=== PATIENT | male | born 1960 | race Caucasian/White ===

== ENCOUNTER 2020-09-25 16:25 | Inpatient (IN) ==
--- NOTE | 2020-09-25 17:06 | XRay Report ---
SINGLE VIEW CHEST CLINICAL HISTORY: Atypical chest pain. FINDINGS: An AP, portable, upright chest radiograph is compared to study dated 04/28/2013. The heart i s top normal for projection. The mediastinal contour is within normal limits. There is bibasilar atel ectasis. The lungs and pleural spaces are otherwise clear. No pneumothorax is seen. The bony thorax i s grossly intact. IMPRESSION: No acute cardiopulmonary abnormality. ACT 112: Negative or not required by law. Electronically signed by: Joshua Carroll M.D. 09/25/2020 5:05 PM
[2020-09-25] MEDS ORDERED: ASPIRIN CHEW 324 MG PO STA (19:46)
[2020-09-25 20:36] LABS: Basophils # (auto) 0.02 K/uL (0-0.2); Basophils % (auto) 0.2 %; Eosinophils # (auto) 0.02 K/uL (0-0.5); Eosinophils % (auto) 0.2 %; Hematocrit (blood only) 40.5 % (42-52); Hemoglobin 13.8 g/dL (14.0-18.0); Immature Granulocytes # (auto) 0.03 K/uL (0.00-0.02); Immature Granulocytes % (auto) 0.2 %; Lymphocytes # (auto) 1.42 K/uL (1.2-3.4); Lymphocytes % (auto) 11.3 %; Mean Corpuscular Hemoglobin 29.4 pg (25-34); Mean Corpuscular Hgb Conc 34.1 g/dL (32-36); Mean Corpuscular Volume 86.2 fL (80-100); Mean Platelet Volume 9.7 fL (7.4-10.4); Monocytes # (auto) 0.64 K/uL (0.11-0.59); Monocytes % (auto) 5.1 %; Neutrophils # (auto) 10.48 K/uL (1.4-6.5); Platelet Count 237 K/uL (130-400); RDW Coefficient of Variation 13.6 % (11.5-14.5); RDW Standard Deviation 43.5 fL (36.4-46.3); White Blood Count 12.61 K/uL (4.8-10.8)
[2020-09-25 20:47] LABS: INR 1.1 (0.9-1.1); Partial Thromboplastin Time 26.9 Seconds (21.0-31.0); Prothrombin Time 10.7 Seconds (9.0-12.0)
[2020-09-25 20:55] LABS: Albumin Level 3.8 gm/dl (3.4-5.0); BUN Creatinine Ratio 27.4 (10-20); Calcium 9.6 mg/dl (8.5-10.1); Creatinine Clr Calc Pharmacy 99.3 ml/min; Est GFR (African American) 91.1 ml/min; Est GFR (Non-African American) 78.6 ml/min; Potassium 4.3 mmol/L (3.5-5.1)
[2020-09-25 20:59] LABS: D Dimer 16070 ug/L FEU (0-500)
[2020-09-25 21:05] LABS: Albumin Globulin Ratio 0.9 (0.9-2); Bilirubin,Total 0.6 mg/dl (0.2-1); Globulin 4.3 gm/dl (2.5-4.0); Total Protein 8.1 gm/dl (6.4-8.2); Troponin I 0.328 ng/ml (0-0.045)
[2020-09-25] MEDS ORDERED: OPTIRAY 320 125ml IV ONE (21:12)
[2020-09-25] MEDS ORDERED: Heparin IV Adult Wt-Based Standard WITH Bolus Protocol IV STA (22:03)
[2020-09-25] MEDS: HEPARIN SODIUM/DEXTROSE 25,000 UNITS/500 ML BAG IV SCH (22:16)
[2020-09-25] MEDS ORDERED: HEPARIN SOD (PORCINE) 1000 UNIT/ML IV ONE (22:18)
--- NOTE | 2020-09-25 22:30 | Emergency Department Note ---
History of Present Illness General Chief Complaint: Chest Pain Stated Complaint: CHEST/RIB PAIN Time Seen by Provider: 09/25/20 19:26 History of Present Illness Provider Complaint: chest pain Onset (ago): day(s) 1 Duration: intermittent and improved Onset: during exertion Pain Location: substernal Pain Radiation: none Severity: moderate Maximum Pain Intensity: 4 Current Pain Intensity: 4 Quality: + heaviness Relieved By: + rest Exacerbated By: + exertion Context: no recent illness, no recent surgery, no recent immobilization, no recent travel, no trauma/injury, no new medications or no history of DVT/PE Associated symptoms: + diaphoresis and + palpitations; no nausea, no vomiting, no dyspnea, no sense of impending doom, no syncope, no fever, no cough or no leg swelling Home Medications Medication Instructions Recorded Confirmed Type lisinopril 20 1 tab PO DAILY 09/25/20 09/25/20 History mg-hydrochlorothiazide 12.5 mg tablet Allergies Allergy/AdvReac Type Severity Reaction Status Date / Time No Known Allergies Allergy Unknown Verified 01/21/14 13:04 Past Med/Surg History Medical History HTN (hypertension) No pertinent family history Surgical History No pertinent past surgical history Social History Smoking Status: Never smoker Preferred Language: Bolivian Feels Safe at Home: Yes Review of Systems A total of 10 systems reviewed and were otherwise negative Physical Exam Vital Signs Vital Signs - 24 hr 09/25/20 16:40 09/25/20 19:27 09/25/20 20:16 Temperature 36.6 C Temperature Source Temporal Artery Scan Pulse Rate 89 104 H 92 H Pulse Rate from SpO2 Sensor 98 H 93 H Pulse Rhythm Regular Pulse Strength Normal Respiratory Rate 20 27 H 27 H Respiratory Effort / Characteristics Non-Labored Respiratory Depth Normal Respiratory Pattern Regular Blood Pressure 128/86 209/122 H 171/108 H Blood Pressure Mean 100 151 129 Blood Pressure Position Sitting Pulse Oximetry 95 94 94 Oxygen Delivery Method Room Air Sepsis Recent Fever Within 48 Hours No Sepsis New/Unexplained Change in Mental Status N/A Sepsis Action Taken by Nursing No Action Required 09/25/20 20:38 Temperature Temperature Source Pulse Rate 91 H Pulse Rate from SpO2 Sensor 92 H Pulse Rhythm Pulse Strength Respiratory Rate 27 H Respiratory Effort / Characteristics Respiratory Depth Respiratory Pattern Blood Pressure 161/102 H Blood Pressure Mean 121 Blood Pressure Position Pulse Oximetry 94 Oxygen Delivery Method Sepsis Recent Fever Within 48 Hours Sepsis New/Unexplained Change in Mental Status Sepsis Action Taken by Nursing Physical Exam GENERAL: He is oriented to person, place, and time. He appears well-developed and well-nourished. He does not appear distressed. HENT: Exam performed. - Head: Normocephalic and atraumatic. - Right Ear: External ear normal. No mastoid tenderness. - Left Ear: External ear normal. No mastoid tenderness. - Mouth/Throat: The oropharynx is clear and moist. No trismus in the jaw. No dental abscesses or uvula swelling. No oropharyngeal exudate or tonsillar abscesses. EYES: Conjunctivae and EOM are normal. Pupils are equal, round, and reactive to light. Right eye exhibits no discharge. Left eye exhibits no discharge. No scleral icterus. NECK: Normal range of motion. Neck supple. No JVD present. No spinous process tenderness present. No carotid bruit present. No rigidity. No tracheal deviation and normal range of motion present. No Brudzinski's sign and no Kernig's sign noted. CV: Tachycardic rate, regular rhythm, normal heart sounds and intact distal pulses. There is no peripheral edema. Palpable radial pulses bue. PULM/CHEST: Effort normal and breath sounds normal. No respiratory distress. No stridor. He has no wheezes. He has no rales. - Chest Wall: He exhibits no tenderness. ABD: The abdomen is soft. Morbidly obese bowel sounds are normal. He has no distension. No mass is present. There is no tenderness. There is no rebound, no guarding, no Alfonso's sign and no tenderness at McBurney's point. Rovsig negative. MUSC/SKEL: Normal range of motion. There is no peripheral edema, tenderness or deformity. LYMPH: No cervical adenopathy. NEURO: He is alert and oriented to person, place, and time. He has normal strength. No cranial nerve deficit or sensory deficit. Coordination and gait normal. GCS eye subscore is 4. GCS verbal subscore is 5. GCS motor subscore is 6. Cerebellar tests wnl. SKIN: Skin is warm and dry. He is not diaphoretic. PSYCH: He has a normal mood and affect. Behavior is normal. Judgment and thought content normal. Course Course 1925: The patient was evaluated in room A3. A complete history and physical exam was performed Cardiac monitoring: An order was placed for continuous cardiac monitoring. The monitor shows a rate of 101 with sinus tachycardia rhythm 2225: Vital signs stable. Pulse oximetry is within normal limits on room air. Patient is not tachycardic. Blood pressure stable. Labs show an elevated troponin of 0.328. D-dimer is elevated at 16,070. CTA of the chest was performed which showed bilateral PEs with right ventricular strain. Patient will be started on heparin. No need for thrombolytics at this time as the p atient is not hypoxic not hypotensive and his pain is controlled at rest. Case discussed with [facility] hospitalist Dr. Piper who will accept and admit to her service. Administered Medications Heparin Sodium/Dextrose (Heparin Sodium/Dextrose) 25,000 units in 500 mls @ 0.02 mls/hr IV .Q24H [facility]; Protocol Stop: 10/25/20 22:29 Last Admin: 09/25/20 22:16 Dose: 1,650 units/hr, 33 mls/hr Documented by: [id number] Cosigned by: [id number] Discontinued Medications Aspirin (Aspirin Chew 324 Mg) 324 mg PO NOW STA Stop: 09/25/20 19:47 Last Admin: 09/25/20 20:17 Dose: 324 mg Documented by: [id number] Heparin Sodium (Porcine) (Heparin Sod (Porcine) 1000 Unit/Ml) 1 units IV NOW ONE Stop: 09/25/20 22:19 Last Admin: 09/25/20 22:16 Dose: 7,000 units Documented by: [id number] Cosigned by: [id number] Heparin Sodium/Dextrose (Heparin Iv Adult Wt-Based Standard With Bolus Protocol) 1 ea IV NOW STA; Protocol Stop: 09/25/20 22:04 Last Admin: 09/25/20 22:16 Dose: 1 ea Documented by: [id number] Ioversol (Optiray 320 125ml) 119 ml IV ONCE ONE Stop: 09/25/20 21:13 Last Admin: 09/25/20 21:12 Dose: 1 ml Documented by: [id number] Medical Decision Making Laboratory Data Result diagrams: 09/25/20 20:01 09/25/20 20:01 Labs: Lab Results 09/25/20 09/25/20 09/25/20 Range/Units 20:01 20:01 20:01 WBC 12.61 H (4.8-10.8) K/uL RBC 4.70 (4.7-6.1) M/uL Hgb 13.8 L (14.0-18.0) g/dL Hct 40.5 L (42-52) % MCV 86.2 (80-100) fL MCH 29.4 (25-34) pg MCHC 34.1 (32-36) g/dL RDW Std Deviation 43.5 (36.4-46.3) fL RDW Coeff of Daniel 13.6 (11.5-14.5) % Plt Count 237 (130-400) K/uL MPV 9.7 (7.4-10.4) fL Immature Gran % (Auto) 0.2 % Neut % (Auto) 83.0 % Lymph % (Auto) 11.3 % [place] % (Auto) 5.1 % Eos % (Auto) 0.2 % Baso % (Auto) 0.2 % Neut # (Auto) 10.48 H (1.4-6.5) K/uL Lymph # (Auto) 1.42 (1.2-3.4) K/uL [place] # (Auto) 0.64 H (0.11-0.59) K/uL Eos # (Auto) 0.02 (0-0.5) K/uL Baso # (Auto) 0.02 (0-0.2) K/uL Immature Gran # (Auto) 0.03 H (0.00-0.02) K/uL PT 10.7 (9.0-12.0) Seconds INR 1.1 (0.9-1.1) APTT 26.9 (21.0-31.0) Seconds PTT Ratio 1.0 D-Dimer (0-500) ug/L FEU Sodium 139 (136-145) mmol/L Potassium 4.3 (3.5-5.1) mmol/L Chloride 108 H (98-107) mmol/L Carbon Dioxide 22 (21-32) mmol/L Anion Gap 9.0 (3-11) BUN 28 H (7-18) mg/dl Creatinine 1.03 (0.6-1.4) mg/dl Est Cr Clr Drug Dosing 99.3 ml/min Est GFR ( Amer) 91.1 ml/min Est GFR (Non-Af Amer) 78.6 ml/min BUN/Creatinine Ratio 27.4 H (10-20) Glucose 101 H (70-99) mg/dl Calcium 9.6 (8.5-10.1) mg/dl Total Bilirubin 0.6 (0.2-1) mg/dl AST 15 (15-37) U/L ALT 28 (12-78) U/L Alkaline Phosphatase 50 (45-117) U/L Troponin I 0.328 H* (0-0.045) ng/ml Total Protein 8.1 (6.4-8.2) gm/dl Albumin 3.8 (3.4-5.0) gm/dl Globulin 4.3 H (2.5-4.0) gm/dl Albumin/Globulin Ratio 0.9 (0.9-2) 09/25/20 Range/Units 20:01 WBC (4.8-10.8) K/uL RBC (4.7-6.1) M/uL Hgb (14.0-18.0) g/dL Hct (42-52) % MCV (80-100) fL MCH (25-34) pg MCHC (32-36) g/dL RDW Std Deviation (36.4-46.3) fL RDW Coeff of Daniel (11.5-14.5) % Plt Count (130-400) K/uL MPV (7.4-10.4) fL Immature Gran % (Auto) % Neut % (Auto) % Lymph % (Auto) % [place] % (Auto) % Eos % (Auto) % Baso % (Auto) % Neut # (Auto) (1.4-6.5) K/uL Lymph # (Auto) (1.2-3.4) K/uL [place] # (Auto) (0.11-0.59) K/uL Eos # (Auto) (0-0.5) K/uL Baso # (Auto) (0-0.2) K/uL Immature Gran # (Auto) (0.00-0.02) K/uL PT (9.0-12.0) Seconds INR (0.9-1.1) APTT (21.0-31.0) Seconds PTT Ratio D-Dimer 96322 H* (0-500) ug/L FEU Sodium (136-145) mmol/L Potassium (3.5-5.1) mmol/L Chloride (98-107) mmol/L Carbon Dioxide (21-32) mmol/L Anion Gap (3-11) BUN (7-18) mg/dl Creatinine (0.6-1.4) mg/dl Est Cr Clr Drug Dosing ml/min Est GFR ( Amer) ml/min Est GFR (Non-Af Amer) ml/min BUN/Creatinine Ratio (10-20) Glucose (70-99) mg/dl Calcium (8.5-10.1) mg/dl Total Bilirubin (0.2-1) mg/dl AST (15-37) U/L ALT (12-78) U/L Alkaline Phosphatase (45-117) U/L Troponin I (0-0.045) ng/ml Total Protein (6.4-8.2) gm/dl Albumin (3.4-5.0) gm/dl Globulin (2.5-4.0) gm/dl Albumin/Globulin Ratio (0.9-2) Imaging Data Chest x-ray: Radiologist's impression: Chest X-Ray 09/25/20 16:42 SINGLE VIEW CHEST CLINICAL HISTORY: Atypical chest pain. FINDINGS: An AP, portable, upright chest radiograph is compared to study dated 04/28/2013. The heart is top normal for projection. The mediastinal contour is within normal limits. There is bibasilar atelectasis. The lungs and pleural spaces are otherwise clear. No pneumothorax is seen. The bony thorax is grossly intact. IMPRESSION: No acute cardiopulmonary abnormality. ACT 112: Negative or not required by law. Electronically signed by: Joshua Carroll M.D. 09/25/2020 5:[address] scan - chest: Radiologist's impression: PreliminaryFindingsOnly See Final Report For Complete Findings CTACHEST: The pulmonaryarterial tree iswell-opacified with contrast. There are filling defects in the distal left and right main pulmonaryarteries extending into all lobar branches consistent with pulmonaryemboli. The RV/LVratio is elevated measuring 1.5 suggesting right heart strain. The thoracic aorta is nondilated. There is no aneurysmor dissection. The heart is not enlarged. No pericardial effusion is seen. No mediastinal or axillarylymph adenopathyor mass is seen. The lungs are well inflated and clear. No infiltrate or consolidation. No pneumothorax or pleural effusion. Moderate multilevel osteophytosis throughout the thoracic spine. Previous gastric sleeve procedure. Radiologist: Phil Piper MD Study ready at 21:38 and initial results transmitted at 22:01 ECG Data Indication: chest pain Rate (beats per minute): 100 Rhythm: normal sinus Findings: no ST depression, no ST elevation or no prolonged QT MDM Narrative Vital signs stable. Pulse oximetry is within normal limits on room air. Patient is not tachycardic. Blood pressure stable. Labs show an elevated troponin of 0.328. D-dimer is elevated at 16,070. CTA of the chest was performed which showed bilateral PEs with right ventricular strain. Patient will be started on heparin. No need for thrombolytics at this time as the patient is not hypoxic not hypotensive and his pain is controlled at rest. Case discussed with [facility] hospitalist Dr. Piper who will accept and admit to her service. Impression & Plan Pulmonary embolism with acute cor pulmonale Critical Care Time Critical Care Time: Yes Total Critical Care Time: 60 I have personally spent greater than 60 minutes of critical care time in the direct management of this patient. This includes bedside care, interpretation of diagnostic studies, and testing, discussion with consultants, patient, and family members, and other required patient management activities. This 60 minutes is in excess of all separately billable procedures. Discharge Plan Visit Data Chief Complaint: Chest Pain Stated Complaint: CHEST/RIB PAIN Discharge Problem: Pulmonary embolism with acute cor pulmonale Patient Disposition: Admitted As Inpatient Forms Stand Alone Forms: [facility] Prescriptions Prescriptions: No Action lisinopril-hydrochlorothiazide 20-12.5 mg tablet 1 tab PO DAILY RF: 0 Referrals Referrals: Alanna Moreland MD [Primary Care Provider] -
--- NOTE | 2020-09-25 22:52 | History & Physical Report ---
Date of Service September 25, 2020 Assessment & Plan (1) Pulmonary emboli: Plan: Pulmonary embolism 60-year-old male with history of hypertension presenting with acute pulmonary emboli. Patient presently hemodynamically stable, adequate oxygenation on room air with no evidence of respiratory distress. Pasi score of 70, class II, low risk. Shock index = 0.6, within normal range. Etiology of VTE unclear. Patient with no personal or family history of blood clots. He denies trauma, immobility. He is up-to-date on age-appropriate cancer screenings. -Admit to PCU -Check BNP and Lactate -Check bilateral LE doppler and 2D echo -Continue heparin gtt -Trend troponin -Lytics should patient decompensate (2) HTN (hypertension): Plan: Blood pressure markedly elevated upon arrival, now normal at 136/74 -Will hold home antihypertensives for now Plan: F/E/N - Heplock, monitor electrolytes and replete as needed, Heart healthy diet as tolerated Ppx - Heparin gtt Code -Full per discussion with patient Dispo -Admit to PCU for management of acute PE History of Present Illness Chief Complaint: SOB Primary Care Provider: Alanna Moreland MD Damir Dacosta is a 60yo male presenting with dyspnea. Patient states that he had some leg cramping last week. Over the weekend he was working in the garden and cleaning his car and washing his car and noticed that he felt more short of breath than usual. Today he had meetings all day. After work he was walking to his car and became cold, clammy and diaphoretic. He had some dizziness and chest pain.He sat down for approximately 1 hour then had a coworker drive him to the emergency room. Patient denies recent travel or immobility, no recent surgery or trauma. No personal or family history of VTE. He has no history of lung disease or heart disease In the ER, patient found to have extensive pulmonary emboli on CTA with concern for right heart strain. He remained hemodynamically stable with no respiratory distress. ER course: Heparin bolus and drip Allergies Allergy/AdvReac Type Severity Reaction Status Date / Time No Known Allergies Allergy Unknown Verified 01/21/14 13:04 Home Medications Medication Instructions Recorded Confirmed Type lisinopril 20 1 tab PO DAILY 09/25/20 09/25/20 History mg-hydrochlorothiazide 12.5 mg tablet Past Med/Surg History Medical History (Updated 09/26/20 @ 00:43 by Amelia Piper DO) HTN (hypertension) Surgical History (Updated 09/26/20 @ 00:37 by Amelia Piper DO) H/O gastric bypass Gastric sleeve History of hernia repair History of hip replacement History of tonsillectomy History of wisdom tooth extraction Family History (Updated 09/26/20 @ 00:38 by Amelia Piper DO) Other Dementia Social History Smoking Status: Never smoker Preferred Language: Cambodian Feels Safe at Home: Yes Immunizations: History of Covid vaccination Review of Systems Review of Systems: General: Patient denies fevers, chills, malaise, weight loss or weight gain Skin: Patient denies bruising, bleeding or rash HEENT: Patient denies headache, visual changes, sore throat, difficulty swallowing, stiff neck Cardio: Patient + chest pain, +COLIN, denies palpitations, syncope Pulmonary: Patient denies cough, wheeze GI: Patient denies abdominal pain, nausea, vomiting, diarrhea, constipation : Patient denies dysuria, frequency, urgency or hematuria Musculoskeletal: Patient denies swelling or pain of the joints, edema Neuro: Patient denies numbness, tingling, weakness or falls Psych: Patient denies depression, anxiety Physical Exam Physical Exam: General: patient resting comfortably, NAD, non-toxic in appearance, AA&O x 4 Skin: warm, dry, intact, no rashes or lesions HEENT: NC/AT, PERRL, EOMI, anicteric sclera, conjunctiva without injection, external ear normal to inspection and nontender, nares patent, moist mucus membranes, dentition intact, no oropharyngeal lesions, neck supple, trachea midline, no LAD, no thyromegaly, no JVD Heart: +S1/S2, regular, no m/r/g Lungs: equal air entry bilaterally, no rales/rhonchi/wheezes Abd: +BS, soft, NT/ND, no masses/organomegaly/ascites Ext: warm, 2+ pulses in UE/LE bilaterally, no clubbing/cyanosis or edema Neuro: nonfocal, patient AA&O x 4, speech intact, no facial droop, moving all extremities on command with equal strength 5/5 Results & Data Results & Data ([facility]) Vital Signs (Past 12 Hours) Vital Signs Temp Pulse Pulse Resp BP BP Pulse Ox 09/25/20 22:26 90 18 136/77 96 09/25/20 20:38 91 H 27 H 161/102 H 94 09/25/20 20:16 92 H 27 H 171/108 H 94 09/25/20 19:27 104 H 27 H 209/122 H 94 09/25/20 16:40 36.6 C 89 20 128/86 95 Laboratory Results Laboratory Results WBC 12.61 K/uL (4.8-10.8) H 09/25/20 20:01 RBC 4.70 M/uL (4.7-6.1) 09/25/20 20:01 Hgb 13.8 g/dL (14.0-18.0) L 09/25/20 20:01 Hct 40.5 % (42-52) L 09/25/20 20:01 MCV 86.2 fL (80-100) 09/25/20 20: MCH 29.4 pg (25-34) 09/25/20 20:01 MCHC 34.1 g/dL (32-36) 09/25/20 20:01 RDW Std Deviation 43.5 fL (36.4-46.3) 09/25/20 20:01 RDW Coeff of Daniel 13.6 % (11.5-14.5) 09/25/20 20:01 Plt Count 237 K/uL (130-400) 09/25/20 20:01 MPV 9.7 fL (7.4-10.4) 09/25/20 20:01 Immature Gran % (Auto) 0.2 % 09/25/20 20:01 Neut % (Auto) 83.0 % 09/25/20 20:01 Lymph % (Auto) 11.3 % 09/25/20 20:01 [place] % (Auto) 5.1 % 09/25/20 20:01 Eos % (Auto) 0.2 % 09/25/20 20:01 Baso % (Auto) 0.2 % 09/25/20 20:01 Neut # (Auto) 10.48 K/uL (1.4-6.5) H 09/25/20 20:01 Lymph # (Auto) 1.42 K/uL (1.2-3.4) 09/25/20 20:01 [place] # (Auto) 0.64 K/uL (0.11-0.59) H 09/25/20 20:01 Eos # (Auto) 0.02 K/uL (0-0.5) 09/25/20 20:01 Baso # (Auto) 0.02 K/uL (0-0.2) 09/25/20 20:01 Immature Gran # (Auto) 0.03 K/uL (0.00-0.02) H 09/25/20 20:01 PT 10.7 Seconds (9.0-12.0) 09/25/20 20:01 INR 1.1 (0.9-1.1) 09/25/20 20:01 APTT > 139.0 Seconds (21.0-31.0) H* 09/25/20 22:51 PTT Ratio > 5.3 09/25/20 22:51 D-Dimer 18322 ug/L FEU (0-500) H* 09/25/20 20:01 Sodium 139 mmol/L (136-145) 09/25/20 20:01 Potassium 4.3 mmol/L (3.5-5.1) 09/25/20 20:01 Chloride 108 mmol/L (98-107) H 09/25/20 20:01 Carbon Dioxide 22 mmol/L (21-32) 09/25/20 20:01 Anion Gap 9.0 (3-11) 09/25/20 20:01 BUN 28 mg/dl (7-18) H 09/25/20 20:01 Creatinine 1.03 mg/dl (0.6-1.4) 09/25/20 20:01 Est Cr Clr Drug Dosing 99.3 ml/min 09/25/20 20:01 Est GFR ( Amer) 91.1 ml/min 09/25/20 20:01 Est GFR (Non-Af Amer) 78.6 ml/min 09/25/20 20:01 BUN/Creatinine Ratio 27.4 (10-20) H 09/25/20 20:01 Glucose 101 mg/dl (70-99) H 09/25/20 20:01 Calcium 9.6 mg/dl (8.5-10.1) 09/25/20 20:01 Total Bilirubin 0.6 mg/dl (0.2-1) 09/25/20 20:01 AST 15 U/L (15-37) 09/25/20 20:01 ALT 28 U/L (12-78) 09/25/20 20:01 Alkaline Phosphatase 50 U/L (45-117) 09/25/20 20:01 Troponin I 0.328 ng/ml (0-0.045) H* 09/25/20 20:01 Total Protein 8.1 gm/dl (6.4-8.2) 09/25/20 20:01 Albumin 3.8 gm/dl (3.4-5.0) 09/25/20 20:01 Globulin 4.3 gm/dl (2.5-4.0) H 09/25/20 20:01 Albumin/Globulin Ratio 0.9 (0.9-2) 09/25/20 20:01 COVID-19 Eval Order Covid19 at [facility] 09/25/20 22:26 SARS-CoV-2 (PCR) NEGATIVE (Negative) 09/25/20 22:26 Impressions Chest X-Ray 09/25/20 16:42 SINGLE VIEW CHEST CLINICAL HISTORY: Atypical chest pain. FINDINGS: An AP, portable, upright chest radiograph is compared to study dated 04/28/2013. The heart is top normal for projection. The mediastinal contour is within normal limits. There is bibasilar atelectasis. The lungs and pleural spaces are otherwise clear. No pneumothorax is seen. The bony thorax is grossly intact. IMPRESSION: No acute cardiopulmonary abnormality. ACT 112: Negative or not required by law. Electronically signed by: Joshua Carroll M.D. 09/25/2020 5:05 PM Diagnostic Findings CTA chest: Per stat readthe pulmonary arterial tree is well opacified with contrast. There are filling defects in the distal left and right main pulmonary arteries extending into all lobar branches consistent with pulmonary emboli. The RV/LV ratio was elevated measuring 1.5 suggesting right heart strain. The thoracic aorta is nondilated. There is no aneurysm or dissection. The heart is not enlarged. No pericardial effusion is seen. No mediastinal or axillary lymphadenopathy or mass is seen. The lungs are well-inflated and clear. No infiltrate or consolidation. No pneumothorax or pleural effusion. Moderate multilevel osteophytosis throughout the thoracic spine. Previous gastric sleeve procedure. ECG Additional Comments: EKG with sinus tachycardia 101 bpm, low voltage, ND = 196, QRS = 86, QTc = 438. Evidence of septal infarct, age indeterminant. Nonspecific ST changes in inferior lateral leads. Code Status & VTE Plan VTE Prophylaxis Plan VTE Prophylaxis will be ordered: Yes PG Care Time/CCT Total # of Minutes Spent Total Time Spent with Patient: Total time spent is greater than 50% in coordination of care (as documented) at patient's floor/unit and/or counseling patient: Coding Level of Care Code 73802 Initial Inpt Care Lvl 2 Diagnoses Pulmonary emboli I26.99 HTN (hypertension) I10
[2020-09-25 23:17] LABS: Partial Thromboplastin Ratio > 5.3
[2020-09-25 23:34] LABS: Partial Thromboplastin Time > 139.0 Seconds (21.0-31.0)
[2020-09-26] MEDS ORDERED: ONDANSETRON INJ 2 MG/ML 2 ML VIAL IV PRN (00:41)
[2020-09-26] MEDS ORDERED: ACETAMINOPHEN 325 MG TAB PO PRN (00:41)
[2020-09-26 01:22] LABS: Phosphorus 4.3 mg/dl (2.5-4.9)
[2020-09-26 04:40] LABS: Basophils # (auto) 0.01 K/uL (0-0.2); Basophils % (auto) 0.1 %; Eosinophils # (auto) 0.15 K/uL (0-0.5); Eosinophils % (auto) 1.3 %; Hematocrit (blood only) 39.3 % (42-52); Hemoglobin 13.5 g/dL (14.0-18.0); Immature Granulocytes # (auto) 0.03 K/uL (0.00-0.02); Immature Granulocytes % (auto) 0.3 %; Lymphocytes % (auto) 26.8 %; Mean Corpuscular Hemoglobin 29.3 pg (25-34); Mean Corpuscular Hgb Conc 34.4 g/dL (32-36); Mean Corpuscular Volume 85.4 fL (80-100); Mean Platelet Volume 9.5 fL (7.4-10.4); Monocytes # (auto) 0.64 K/uL (0.11-0.59); Monocytes % (auto) 5.7 %; Neutrophils # (auto) 7.37 K/uL (1.4-6.5); Neutrophils % (auto) 65.8 %; Platelet Count 238 K/uL (130-400); RDW Coefficient of Variation 13.7 % (11.5-14.5); RDW Standard Deviation 42.5 fL (36.4-46.3)
[2020-09-26 04:57] LABS: BUN Creatinine Ratio 29.1 (10-20); Creatinine Clr Calc Pharmacy 111.1 ml/min; Est GFR (African American) 104.4 ml/min; Est GFR (Non-African American) 90.1 ml/min; Potassium 3.8 mmol/L (3.5-5.1)
[2020-09-26 05:00] LABS: Partial Thromboplastin Ratio 2.8
[2020-09-26 05:02] LABS: Troponin I 0.222 ng/ml (0-0.045)
[2020-09-26 05:10] LABS: Partial Thromboplastin Time 72.5 Seconds (21.0-31.0)
--- NOTE | 2020-09-26 07:40 | CT Scan Report ---
CT angio chest PE protocol CT DOSE: 1027.73 mGy.cm HISTORY: 60 years-old Male with ro PE. Acutely elevated d-dimer level with chest pain TECHNIQUE: Multiple CTA images of the chest were obtained after the intravenous administration of 119 ml Optiray. Coronal and sagittal MIPS were obtained from the axial data set and were submitted for review. All measurements were obtained according to NASCET criteria. A dose lowering technique was u tilized adhering to the principles of ALARA. COMPARISON: Chest radiograph of same day FINDINGS: CTA: Mild cardiac megaly with trace pericardial effusion. Mild coronary artery calcifications. No thoracic aortic aneurysm or dissection. Pulmonary emboli are present within the distal aspects of the main ri ght and left pulmonary arteries extending into the lobar, segmental and subsegmental branches of all lobes bilaterally. There is straightening of the intraventricular septum. CT CHEST: Unremarkable thyroid. No adenopathy. No pneumothorax, pleural effusion, airspace consolidation or ove rt pulmonary edema. No pulmonary infarction, suspicious pulmonary nodule or mass. The central airways are patent. Prior gastric bypass. No acute process of the imaged upper abdomen. Unremarkable soft tissues. No acu te fracture. IMPRESSION: 1. Extensive acute pulmonary emboli with evidence of right heart strain. 2. Cardiomegaly without pulmonary edema, pleural effusion or pulmonary infarct. ACT 112: Negative or not required by law. The above report was generated using voice recognition software. It may contain grammatical, syntax o r spelling errors. Electronically signed by: Juanito Rader M.D. 09/26/2020 7:39 AM
--- NOTE | 2020-09-26 09:39 | Ultrasound Report ---
BILATERAL LOWER EXTREMITY VENOUS DOPPLER HISTORY: Pulmonary embolus. Assess for DVTs. COMPARISON STUDY: None. FINDINGS: There is normal compressibility, flow, and augmentation within the bilateral lower extremit y deep venous systems. IMPRESSION: No DVT within the right or left lower extremity. ACT 112: Negative or not required by law. Electronically signed by: Micha Nielsen M.D. 09/26/2020 9:38 AM
[2020-09-26] MEDS ORDERED: PERFLUTREN LIPID MICROSPHERE (DEFINITY) IV ONE (11:18)
[2020-09-26 12:08] LABS: Partial Thromboplastin Time 51.6 Seconds (21.0-31.0)
[2020-09-26] MEDS: HEPARIN SODIUM/DEXTROSE 25,000 UNITS/500 ML BAG IV SCH (12:23)
--- NOTE | 2020-09-26 15:01 | XCELERA ---
[id number]
--- NOTE | 2020-09-26 15:04 | Electrocardiogram Report ---
Test Reason : Blood Pressure : / mmHG Vent. Rate : 101 BPM Atrial Rate : 101 BPM P-R Int : 196 ms QRS Dur : 086 ms QT Int : 338 ms P-R-T Axes : 000 089 186 degrees QTc Int : 438 ms Sinus tachycardia Low voltage QRS Abnormal ECG When compared with ECG of 27-DEC-2010 13:58, T wave inversion now evident in Lateral leads QT has lengthened Confirmed by Joaquín Chen ([id number]) on 09/26/2020 3:03:57 PM Referred By: REFERRED SELF Confirmed By:Axel Chen
[2020-09-26] MEDS ORDERED: WARFARIN SOD 10 MG TAB PO ONE (17:00)
--- NOTE | 2020-09-26 21:44 | Hospitalist Progress Note ---
Date of Service September 26, 2020 Assessment & Plan (1) Pulmonary emboli: Plan: Extensive b/l PEs. Fortunately no hypoxia. This would suggest he was throwing PEs for some time. Dopplers of legs neg for residual DVT. Echo with mild right-heart enlargement but normal RV systolic function. Cause of VTE?? We had lengthy discussion about this. Will need updated cancer screenings post-d/c. Will send some hypercoagulability w/u labs - prothrombin gene mutation, factor 5 leiden mutation, homocysteine, etc. I don't believe he is a good DOAC candidate because of morbid obesity and BMI of nearly 140kg. Thus, start coumadin - load with 10mg today. Cont heparin. May be candidate for lovenox 150mg BID to help with bridging. But would wait at least 2 days to see what INR trend does before transitioning to lovenox. (2) HTN (hypertension): Plan: BPs controlled with BERENICE-HCT on hold. Cont to hold. (3) Morbid obesity with BMI of 50.0-59.9, adult: Plan: BMI 50 Plan: left message for pt's on her voicemail this evening length of visit about 35 min due to considerable discussion at bedside Admission and Anticipated Discharge Date Admission Date: September 25, 2020 Subjective patient resting comfortably in bed during the visit. no dyspnea at rest. he states he has improved COLIN today. tele normal overnight ; some sinus tach with activity. pt denies personal or family history of VTE. in the months leading up to this event he has had normal health. he admits to not being as active because of COVID, but yefr-ydl-goca he is going to work on the [facility] campus as usual. no recent surgery. no recent travel. fully vaccinated against COVID - received vaccine earlier in spring. no COVID illness at any time. he is UTD with colonoscopy - had a normal c-scope at age 53. no h/o prostate issues. did lose about 10-12 pounds over the last 6 months but he changed his diet to help promote weight loss. Review of Systems Constitutional: no fever, no chills, no sweats, no fatigue, no weakness and no anorexia Respiratory: + dyspnea on exertion; no cough Cardiovascular: no chest pain and no edema Gastrointestinal: no abdominal pain, no nausea, no vomiting and no change in bowel habits Genitourinary: no difficulty urinating Physical Exam Physical Exam: gen - NAD, morbidly obese neck - no cervical lymphadenopathy mouth - MMM heart - RRR, s1 s2, no murmur lungs - CTA b/l abd - soft, NT, ND, BS+, no HSM ext - no edema skin - no rash Results & Data Results & Data ([facility]) Vital Signs (Past 12 Hours) Vital Signs Temp Pulse Resp BP BP Pulse Ox 09/26/20 19:47 36.2 C L 90 18 111/77 94 09/26/20 11:48 36.8 C 79 132/75 93 Laboratory Results Laboratory Results - last 24 hr 09/25/20 09/25/20 09/25/20 22:26 22:26 22:51 WBC RBC Hgb Hct MCV MCH MCHC RDW Std Deviation RDW Coeff of Daniel Plt Count MPV Immature Gran % (Auto) Neut % (Auto) Lymph % (Auto) Durham % (Auto) Eos % (Auto) Baso % (Auto) Neut # (Auto) Lymph # (Auto) Durham # (Auto) Eos # (Auto) Baso # (Auto) Immature Gran # (Auto) APTT > 139.0 H* PTT Ratio > 5.3 Sodium Potassium Chloride Carbon Dioxide Anion Gap BUN Creatinine Est Cr Clr Drug Dosing Est GFR ( Amer) Est GFR (Non-Af Amer) BUN/Creatinine Ratio Glucose Calcium Phosphorus Magnesium Troponin I NT-Pro-B Natriuret Pep COVID-19 Eval Order Covid19 at [facility] SARS-CoV-2 (PCR) NEGATIVE 09/25/20 09/26/20 09/26/20 22:51 04:12 04:12 WBC 11.20 H RBC 4.60 L Hgb 13.5 L Hct 39.3 L MCV 85.4 MCH 29.3 MCHC 34.4 RDW Std Deviation 42.5 RDW Coeff of Daniel 13.7 Plt Count 238 MPV 9.5 Immature Gran % (Auto) 0.3 Neut % (Auto) 65.8 Lymph % (Auto) 26.8 Durham % (Auto) 5.7 Eos % (Auto) 1.3 Baso % (Auto) 0.1 Neut # (Auto) 7.37 H Lymph # (Auto) 3.00 Durham # (Auto) 0.64 H Eos # (Auto) 0.15 Baso # (Auto) 0.01 Immature Gran # (Auto) 0.03 H APTT PTT Ratio Sodium 136 Potassium 3.8 Chloride 110 H Carbon Dioxide 23 Anion Gap 3.0 BUN 27 H Creatinine 0.92 Est Cr Clr Drug Dosing 111.1 Est GFR ( Amer) 104.4 Est GFR (Non-Af Amer) 90.1 BUN/Creatinine Ratio 29.1 H Glucose 103 H Calcium 9.0 Phosphorus 4.3 Magnesium 2.0 Troponin I 0.222 H* NT-Pro-B Natriuret Pep 2161 H COVID-19 Eval Order SARS-CoV-2 (PCR) 09/26/20 09/26/20 09/26/20 04:12 11:07 12:40 WBC RBC Hgb Hct MCV MCH MCHC RDW Std Deviation RDW Coeff of Daniel Plt Count MPV Immature Gran % (Auto) Neut % (Auto) Lymph % (Auto) Durham % (Auto) Eos % (Auto) Baso % (Auto) Neut # (Auto) Lymph # (Auto) Durham # (Auto) Eos # (Auto) Baso # (Auto) Immature Gran # (Auto) APTT 72.5 H* 51.6 H* PTT Ratio 2.8 2.0 Sodium Potassium Chloride Carbon Dioxide Anion Gap BUN Creatinine Est Cr Clr Drug Dosing Est GFR ( Amer) Est GFR (Non-Af Amer) BUN/Creatinine Ratio Glucose Calcium Phosphorus Magnesium Troponin I 0.121 H* NT-Pro-B Natriuret Pep COVID-19 Eval Order SARS-CoV-2 (PCR) Diagnostic Findings Chest CTA 09/25/20 21:00 CT angio chest PE protocol CT DOSE: 1027.73 mGy.cm HISTORY: 60 years-old Male with ro PE. Acutely elevated d-dimer level with chest pain TECHNIQUE: Multiple CTA images of the chest were obtained after the intravenous administration of 119 ml Optiray. Coronal and sagittal MIPS were obtained from the axial data set and were submitted for review. All measurements were obtained according to NASCET criteria. A dose lowering technique was utilized adhering to the principles of ALARA. COMPARISON: Chest radiograph of same day FINDINGS: CTA: Mild cardiac megaly with trace pericardial effusion. Mild coronary artery calcifications. No thoracic aortic aneurysm or dissection. Pulmonary emboli are present within the distal aspects of the main right and left pulmonary arteries extending into the lobar, segmental and subsegmental branches of all lobes bilaterally. There is straightening of the intraventricular septum. CT CHEST: Unremarkable thyroid. No adenopathy. No pneumothorax, pleural effusion, airspace consolidation or overt pulmonary edema. No pulmonary infarction, suspicious pulmonary nodule or mass. The central airways are patent. Prior gastric bypass. No acute process of the imaged upper abdomen. Unremarkable soft tissues. No acute fracture. IMPRESSION: 1. Extensive acute pulmonary emboli with evidence of right heart strain. 2. Cardiomegaly without pulmonary edema, pleural effusion or pulmonary infarct. ACT 112: Negative or not required by law. The above report was generated using voice recognition software. It may contain grammatical, syntax or spelling errors. Electronically signed by: Juanito Rader M.D. 09/26/2020 7:39 AM Venous Doppler Study 09/26/20 09:00 BILATERAL LOWER EXTREMITY VENOUS DOPPLER HISTORY: Pulmonary embolus. Assess for DVTs. COMPARISON STUDY: None. FINDINGS: There is normal compressibility, flow, and augmentation within the bilateral lower extremity deep venous systems. IMPRESSION: No DVT within the right or left lower extremity. ACT 112: Negative or not required by law. Electronically signed by: Micha Nielsen M.D. 09/26/2020 9:38 AM PG Care Time/CCT Total # of Minutes Spent Total Time Spent with Patient: Total time spent is greater than 50% in coordination of care (as documented) at patient's floor/unit and/or counseling patient: Coding Level of Care Code 44801 Subseq Hosp Care Lvl 3 Diagnoses Pulmonary emboli I26.99 HTN (hypertension) I10 Morbid obesity with BMI of 50.0-59.9, adult E66.01; Z68.43
[2020-09-27] MEDS: HEPARIN SODIUM/DEXTROSE 25,000 UNITS/500 ML BAG IV SCH ×2 (03:14→19:23)
[2020-09-27 08:12] LABS: Partial Thromboplastin Ratio 2.1
[2020-09-27 08:14] LABS: Partial Thromboplastin Time 55.6 Seconds (21.0-31.0)
[2020-09-27 08:24] LABS: BUN Creatinine Ratio 25.5 (10-20); Calcium 9.1 mg/dl (8.5-10.1); Creatinine Clr Calc Pharmacy 107.3 ml/min; Est GFR (African American) 100.4 ml/min; Est GFR (Non-African American) 86.7 ml/min; Potassium 4.1 mmol/L (3.5-5.1)
[2020-09-27] MEDS ORDERED: WARFARIN SOD 10 MG TAB PO SCH (16:00)
--- NOTE | 2020-09-27 22:08 | Hospitalist Progress Note ---
Date of Service September 27, 2020 Assessment & Plan (1) Pulmonary emboli: Plan: Extensive b/l PEs. Remains hemodynamically stable with stable O2 sats. Dopplers of legs neg for residual DVT. Echo with mild right-heart enlargement but normal RV systolic function. Cause of VTE?? We had lengthy discussion about this. Will need updated cancer screenings post-d/c. hypercoagulability labs - prothrombin gene mutation, factor 5 leiden mutation, homocysteine, etc. -- sent this am. Not a good DOAC candidate because of morbid obesity and BMI of nearly 140kg. Thus, started coumadin. 10mg yesterday; 10mg today. Cont heparin. INR in am. If INR rising appropriately can likely transition from heparin drip to lovenox 1mg/kg BID tomorrow. Then would keep 1 more day beyond that to teach him lovenox and trend INR. Will need 48-hours of "overlap" therapy with lovenox/coumadin once over to this combo. (2) HTN (hypertension): Plan: BPs controlled with BERENICE-HCT on hold. Cont to hold. (3) Morbid obesity with BMI of 50.0-59.9, adult: Plan: BMI 50 Plan: left message for pt's on her voicemail yesterday Admission and Anticipated Discharge Date Admission Date: September 25, 2020 Subjective tele overnight wnl he feels good denies any chest symptoms eating well denies any new complaints Review of Systems Review of Systems: gen - no weakness, no fatigue, no anorexia cv - no chest pain pulm - no cough, no hemoptysis, no dyspnea GI - no rectal bleeding - no hematuria Physical Exam Physical Exam: gen - NAD, morbidly obese mouth - MMM heart - RRR, s1 s2, no murmur lungs - CTA b/l abd - soft, NT, ND, BS+, no HSM ext - no edema skin - no rash psych - a/o x 3 Results & Data Results & Data ([facility]) Vital Signs (Past 12 Hours) Vital Signs Temp Pulse Resp BP BP Pulse Ox 09/27/20 19:16 36.6 C 71 17 143/84 H 93 09/27/20 15:32 36.6 C 73 18 122/84 95 09/27/20 11:32 96 09/27/20 11:30 36.8 C 84 18 125/84 Laboratory Results Laboratory Results - last 24 hr 09/27/20 09/27/20 09/27/20 07:26 07:26 07:26 APTT PTT Ratio Factor V Leiden Mutat Pending Factor V Leiden Interp Pending Sodium 139 Potassium 4.1 Chloride 110 H Carbon Dioxide 22 Anion Gap 7.0 BUN 24 H Creatinine 0.95 Est Cr Clr Drug Dosing 107.3 Est GFR ( Amer) 100.4 Est GFR (Non-Af Amer) 86.7 BUN/Creatinine Ratio 25.5 H Glucose 104 H Calcium 9.1 Homocysteine Beta-2-GPI IgG Ab Pending Beta-2-GPI IgM Ab Pending Anti-Cardiolipin IgG Ab Pending Anti-Cardiolipin IgM Ab Pending Prothrombin Gene Mutate Pending Prothromb Gene Comment Pending 09/27/20 09/27/20 07:26 07:26 APTT 55.6 H* PTT Ratio 2.1 Factor V Leiden Mutat Factor V Leiden Interp Sodium Potassium Chloride Carbon Dioxide Anion Gap BUN Creatinine Est Cr Clr Drug Dosing Est GFR ( Amer) Est GFR (Non-Af Amer) BUN/Creatinine Ratio Glucose Calcium Homocysteine Pending Beta-2-GPI IgG Ab Beta-2-GPI IgM Ab Anti-Cardiolipin IgG Ab Anti-Cardiolipin IgM Ab Prothrombin Gene Mutate Prothromb Gene Comment PG Care Time/CCT Total # of Minutes Spent Total Time Spent with Patient: Total time spent is greater than 50% in coordination of care (as documented) at patient's floor/unit and/or counseling patient: Coding Level of Care Code 43033 Subseq Hosp Care Lvl 2 Diagnoses Pulmonary emboli I26.99 HTN (hypertension) I10 Morbid obesity with BMI of 50.0-59.9, adult E66.01; Z68.43
[2020-09-28 07:01] LABS: Creatinine Clr Calc Pharmacy 99.2 ml/min; Est GFR (African American) 92.2 ml/min; Est GFR (Non-African American) 79.5 ml/min
[2020-09-28 07:43] LABS: INR 1.9 (0.9-1.1); Partial Thromboplastin Ratio 2.6; Prothrombin Time 18.5 Seconds (9.0-12.0)
[2020-09-28 08:07] LABS: Partial Thromboplastin Time 69.5 Seconds (21.0-31.0)
[2020-09-28] MEDS: ENOXAPARIN 150 MG/ML SYR SQ SCH ×2 (11:00→22:06)
--- NOTE | 2020-09-28 12:35 | Hospitalist Progress Note ---
Date of Service September 28, 2020 Assessment & Plan (1) Pulmonary emboli: Plan: Extensive b/l PEs on admission CTA chest. Has remained hemodynamically stable with stable O2 sats the entire stay; never had O2 requirement. Dopplers of legs neg for residual DVT. Echo with mild right-heart enlargement but normal RV systolic function. Cause of VTE?? We had lengthy discussion about this earlier in the hospitalization. Will need updated cancer screenings post-d/c with his PCP, Dr Landeros at [facility]. Hypercoagulability labs - prothrombin gene mutation, factor 5 leiden mutation, homocysteine, etc. -- sent this am. Not a good DOAC candidate because of morbid obesity and BMI of nearly 140kg. Thus, started coumadin. 10mg on 09/26. 10mg on 09/27. INR jumped from 1 to 1.9 in 48 hours. thus reduce coumadin to 5mg today. STOP heparin. Transition to lovenox 140mg BID. He feels comfortable with lovenox, and cost is <$50 per pharmacy. INR in am. Will need 48-hours of "overlap" therapy with lovenox/coumadin once over to this combo. If he discharges tomorrow on Friday would bring him to [facility] on Friday and Friday for INR checks. Then coumadin clinic referral for Friday, 10/02, with Dr Pierce. I did discuss his case briefly with Dr Pierce earlier this week. (2) HTN (hypertension): Plan: BPs controlled with BERENICE-HCT on hold. Cont to hold. (3) Morbid obesity with BMI of 50.0-59.9, adult: Plan: BMI 50 Plan: left message for pt's on her voicemail earlier this week updated pt's son, Anuj, this evening d/c tele move to med-surg Admission and Anticipated Discharge Date Admission Date: September 25, 2020 Subjective tele overnight wnl patient feels very good denies any dyspnea, COLIN, pleurisy, or chest pain eating well no rectal bleeding or bleeding feels comfortable with lovenox injections Review of Systems Review of Systems: gen - no fatigue CV - no chest pain GI - no abd pain or nausea pulm - no wheezing, cough, or dyspnea Physical Exam Physical Exam: gen - NAD, morbidly obese mouth - MMM heart - RRR, s1 s2, no murmur lungs - CTA b/l abd - soft, NT, ND, BS+, no HSM ext - no edema; pulses 2+ b/l skin - no rash; no severe bruising any location psych - a/o x 3 Results & Data Results & Data ([facility]) Vital Signs (Past 12 Hours) Vital Signs Temp Pulse Pulse Resp BP BP Pulse Ox 09/28/20 11:40 36.6 C 76 18 160/85 H 95 09/28/20 10:02 73 09/28/20 07:28 36.7 C 69 18 143/87 H 96 09/28/20 03:48 36.7 C 64 17 131/80 98 Laboratory Results Laboratory Results - last 24 hr 09/28/20 09/28/20 09/28/20 06:18 06:18 06:18 Hgb 13.0 L PT 18.5 H INR 1.9 H APTT 69.5 H* PTT Ratio 2.6 Creatinine 1.02 Est Cr Clr Drug Dosing 99.2 Est GFR ( Amer) 92.2 Est GFR (Non-Af Amer) 79.5 PG Care Time/CCT Total # of Minutes Spent Total Time Spent with Patient: Total time spent is greater than 50% in coordination of care (as documented) at patient's floor/unit and/or counseling patient: Coding Level of Care Code 16590 Subseq Hosp Care Lvl 2 Diagnoses Pulmonary emboli I26.99 HTN (hypertension) I10 Morbid obesity with BMI of 50.0-59.9, adult E66.01; Z68.43
[2020-09-28] MEDS ORDERED: lisinopril 10 MG TAB PO ONE (13:00)
[2020-09-28] MEDS ORDERED: WARFARIN SOD 5 MG TAB PO SCH (16:00)
[2020-09-29 07:57] LABS: INR 3.2 (0.9-1.1); Prothrombin Time 29.4 Seconds (9.0-12.0)
[2020-09-29 08:17] LABS: BUN Creatinine Ratio 21.3 (10-20); Calcium 9.2 mg/dl (8.5-10.1); Creatinine Clr Calc Pharmacy 108.8 ml/min; Est GFR (African American) 103.1 ml/min; Est GFR (Non-African American) 88.9 ml/min
[2020-09-29] MEDS ORDERED: lisinopril 10 MG TAB PO SCH (09:00)
[2020-09-29] MEDS: ENOXAPARIN 150 MG/ML SYR SQ SCH (09:46)
--- NOTE | 2020-09-29 12:57 | Discharge Summary ---
Date of Service September 29, 2020 Admission HPI Per Admitting Provider Damir Dacosta is a 60yo male presenting with dyspnea. Patient states that he had some leg cramping last week. Over the weekend he was working in the garden and cleaning his car and washing his car and noticed that he felt more short of breath than usual. Today he had meetings all day. After work he was walking to his car and became cold, clammy and diaphoretic. He had some dizziness and chest pain.He sat down for approximately 1 hour then had a coworker drive him to the emergency room. Patient denies recent travel or immobility, no recent surgery or trauma. No personal or family history of VTE. He has no history of lung disease or heart disease In the ER, patient found to have extensive pulmonary emboli on CTA with concern for right heart strain. He remained hemodynamically stable with no respiratory distress. ER course: Heparin bolus and drip Admission Exam (Per Admitting) Constitutional Exam: General: patient resting comfortably, NAD, non-toxic in appearance, AA&O x 4 Skin: warm, dry, intact, no rashes or lesions HEENT: NC/AT, PERRL, EOMI, anicteric sclera, conjunctiva without injection, external ear normal to inspection and nontender, nares patent, moist mucus membranes, dentition intact, no oropharyngeal lesions, neck supple, trachea midline, no LAD, no thyromegaly, no JVD Heart: +S1/S2, regular, no m/r/g Lungs: equal air entry bilaterally, no rales/rhonchi/wheezes Abd: +BS, soft, NT/ND, no masses/organomegaly/ascites Ext: warm, 2+ pulses in UE/LE bilaterally, no clubbing/cyanosis or edema Neuro: nonfocal, patient AA&O x 4, speech intact, no facial droop, moving all extremities on command with equal strength 06/21 Discharge Data Consultations 09/25/20 22:12 ED Decision to Admit Stat Hospital Course (1) Pulmonary emboli: Damir is a 60-year-old male with no known past medical history of cancer who presented with bilateral pulmonary emboli and who was discharged on warfarin anticoagulation with Lovenox bridge. To do as outpatient: 1. INR is Friday and Friday after discharge 2. Follow-up with anticoagulation clinic 10/02 3. Follow-up with outpatient primary care provider for updated cancer screenings and blood pressure check/antihypertensive management. Pulmonary emboli Extensive bilateral PE on CTA chest Hemodynamically stable, no hypoxia during admission Dopplers of legs negative for residual DVT Echo with mild right heart enlargement but normal RV systolic function No known cause or provoking agent of his PE Will require updated cancer screenings as outpatient Hypercoagulability labs pending, sent during admission Patient anticoagulated with warfarin as poor DOAC candidate due to morbid obesity INR checks over the weekend, follow-up with anticoagulation clinic Monday 10/02 after discharge Discharge physical exam: General: A&Ox3. NAD. Cooperative. Morbidly obese. HEENT: Atraumatic, normocephalic.Visual acuity grossly intact, hearing grossly intact. Pulm: CTAB A&P. -wheezes, -rales, -rhonchi. Symmetrical chest rise. No increased work of breathing. No respiratory distress. Cardiac: RRR, -mrg. Radial pulses intact and symmetrical. Abdominal: Nontender, nondistended, soft. BS present. (2) HTN (hypertension): Normotensive during admission Outpatient antihypertensives To be resumed as outpatient, recommend additional blood check on PCP follow-up (3) Morbid obesity with BMI of 50.0-59.9, adult: BMI 50 Coding Level of Care Code D/C DAY MANAGEMENT >30 MINS Diagnoses Pulmonary emboli I26.99 HTN (hypertension) I10 Morbid obesity with BMI of 50.0-59.9, adult E66.01; Z68.43
[2020-10-02 14:20] LABS: Anti Cardiolipin Ab IgG <2.0 GPL-U/mL; B2 Glycoprotein IgG <2.0 U/mL (<20.0); B2 Glycoprotein IgM 14.6 U/mL (<20.0)
== END 2020-09-29 15:23 | disposition home or self-care (01) | DRG 175 ==
LOC: ED 16:25 → SUATTDRO 22:52 → 2S 22:52 → 3N 09-28 14:01